=== PATIENT | female | born 1940 | race Hispanic/Latino ===

== ENCOUNTER → 2024-08-15 | Outpatient (CLI) | payer OTHER | END | disposition home or self-care (01) | LOC: SHCH 09:12 | PROVIDERS: ATTEND Internal Medicine Cardiovascular Disease | DX: I87.2 Venous insufficiency (chronic) (peripheral) (principal); I73.9 Peripheral vascular disease, unspecified; R07.9 Chest pain, unspecified; I87.1 Compression of vein | CPT/HCPCS: 93925; 93970 ==